=== PATIENT | male | born 1980 | race American Indian/Alaskan Native ===

== ENCOUNTER 2019-01-18 18:11 | Emergency (ER) | payer MEDICAID, OTHER ==
[2019-01-18] MEDS ORDERED: LORazepam 1 MG Tab PO ONE (18:35)
--- NOTE | 2019-01-18 19:13 | EDM.PDOC ---
ED HPI GENERAL MEDICAL PROBLEM - General Chief Complaint: Behavioral/Psych Stated Complaint: PANIC ATTACK Time Seen by Provider: 01/18/19 18:45 Source of Information: Reports: Patient History Limitations: Reports: No Limitations - History of Present Illness INITIAL COMMENTS - FREE TEXT/NARRATIVE: 38 yo male picked up by ambulance due to a panic attack. he reports SOB, tingling ,numbness of the face and upper extremities for about 30 min. He has had similar episodes,last one was 2 months ago. This most recent was provoked by stress,when he got o the hotel and couldn't afford to pay. He is hitchhiking from [place] to [facility]. - Related Data Allergies Allergy/AdvReac Type Severity Reaction Status Date / Time No Known Allergies Allergy Verified 01/18/19 18:21 Home Meds: Home Meds Doxepin [SINEquan] 50 mg PO BID PRN 01/18/19 [History] Past Medical History Psychiatric History: Reports: Anxiety, Depression, Panic Attack - Past Surgical History GI Surgical History: Reports: Appendectomy Social & Family History - Tobacco Use Smoking Status *Q: Current Every Day Smoker Years of Tobacco use: 5 Packs/Tins Daily: 0.1 - Caffeine Use Caffeine Use: Reports: Energy Drinks - Recreational Drug Use Recreational Drug Use: No ED ROS GENERAL - Review of Systems Review Of Systems: ROS reveals no pertinent complaints other than HPI. - Physical Exam Exam: See Below Exam Limited By: No Limitations General Appearance: Alert, WD/WN, No Apparent Distress, Anxious, Lethargic Ears: Normal TMs Nose: Normal Inspection Throat/Mouth: Normal Inspection Head Exam: Atraumatic Neck: Normal Inspection Course - Vital Signs Last Recorded V/S: Last Vital Signs Temp 98.1 F 01/18/19 18:26 Pulse 65 01/18/19 19:38 Resp 16 01/18/19 19:38 BP 113/74 01/18/19 19:38 Pulse Ox 98 01/18/19 19:38 - Orders/Labs/Meds Meds: Medications Discontinued Medications Generic Name Dose Route Start Last Admin Trade Name Freq PRN Reason Stop Dose Admin Lorazepam 1 mg 01/18/19 18:35 01/18/19 18:45 Ativan PO 01/18/19 18:36 1 mg ONETIME ONE Administration Departure - Departure Time of Disposition: 06:11 Disposition: Home, Self-Care 01 Condition: Good Clinical Impression: Anxiety - Discharge Information Instructions: Panic Attack, [id number] Forms: ED Department Discharge - Problem List & Annotations (1) Panic attack SNOMED Code(s): 407808418 Code(s): F41.0 - PANIC DISORDER [EPISODIC PAROXYSMAL ANXIETY] Status: Acute - Problem List Review Problem List Initiated/Reviewed/Updated: Yes - Assessment/Plan Plan: I gave him Lorazepam 1 mg one time.He improved markedly.Sent to a hotel locally
== END 2019-01-18 19:38 | disposition home or self-care (01) ==
LOC: FB.ED 18:11
DX: F41.9 Anxiety disorder, unspecified (principal); F32.9 Major depressive disorder, single episode, unspecified; F17.210 Nicotine dependence, cigarettes, uncomplicated; Z79.899 Other long term (current) drug therapy
CPT/HCPCS: 99284; A9270; 99283